=== PATIENT | female | born 1955 | race Two or more races ===

== ENCOUNTER 2018-07-26 08:12 | Emergency (ER) | payer SELFPAY ==
[~2018-07-26] VITALS: Ht 165.1 cm; Wt 104.3 kg
[2018-07-26 08:41] VITALS: BP 105/42
[2018-07-26] MEDS: KETOROLAC TROMETH 60MG/2ML VIAL IM ONE (08:55)
== END 2018-07-26 09:21 | disposition home or self-care (01) ==
LOC: ER 08:12
DX: M51.37 Other intervertebral disc degeneration, lumbosacral region (principal); M54.16 Radiculopathy, lumbar region
CPT/HCPCS: 96372; 99283; J1885